=== PATIENT | female | born 1965 | race Caucasian/White ===

== ENCOUNTER 2025-01-08 18:21 | Emergency (ER) | payer OTHER ==
[~2025-01-08] VITALS: Ht 152.4 cm; Wt 53.5 kg
[2025-01-08] MEDS ORDERED: Diphth,Pertuss(Acell),Tet Vac 0.5 ML VIAL IM ONE (21:10)
== END 2025-01-08 22:25 | disposition home or self-care (01) ==
LOC: ER 18:21
DX: S81.012A Laceration without foreign body, left knee, initial encounter (principal); W10.9XXA Fall (on) (from) unspecified stairs and steps, initial encounter; Z23 Encounter for immunization
CPT/HCPCS: 12002; 73560-LT; 90471; 90715; 99283-25

== ENCOUNTER 2025-01-27 09:13 | Emergency (ER) | payer MEDICARE ==
[~2025-01-27] VITALS: Ht 152.4 cm; Wt 54.4 kg
[2025-01-27] MEDS ORDERED: CEPH500 PO (10:03)
== END 2025-01-27 10:15 | disposition home or self-care (01) ==
LOC: ER 09:13
DX: L03.116 Cellulitis of left lower limb (principal); Z48.02 Encounter for removal of sutures
CPT/HCPCS: 99282